=== PATIENT | male | born 1980 | race Asian ===

== ENCOUNTER 2021-01-06 11:34 | Emergency (ER) | payer BC, OTHER ==
[~2021-01-06] VITALS: Ht 165.1 cm; Wt 54.9 kg
[2021-01-06 11:38] VITALS: BP 114/81
--- NOTE | 2021-01-06 11:46 | NUR ---
40 YO MALE BIBS D/T LACERATION TO LEFT 3RD AND 4TH DIGIT. PAIN 10/10, THROBBING. BLEEDING IS CURRENTLY BEING CONTROLLED WITH GAUZE. PT STATES HE WAS GARDENING AND THE GARDEN JEROME LACERATED HIS 3RD AND 4TH DIGIT WHEN IT JERKED BACK AT HIM. SENSATION AND ROM INTACT. PMH: DENIES NKDA
[2021-01-06] MEDS ORDERED: LIDOCAINE 2% 1000 MG/50 ML VIAL INJ ONE (12:10)
[2021-01-06] MEDS ORDERED: KETOROLAC 30 MG/ML VIAL IM ONE (12:10)
[2021-01-06] MEDS ORDERED: LIDOCAINE MPF 1% 5 ML ONE (12:31)
[2021-01-06] MEDS ORDERED: LIDOCAINE 2% 100 MG/5 ML SYR IVP ONE (12:31)
[2021-01-06] MEDS ORDERED: CEPH-588 PO (12:52)
[2021-01-06] MEDS ORDERED: IBUP-2213 PO (12:52)
[2021-01-06] MEDS ORDERED: BACITRACIN OINT 500 UNITS/GM PKT TP ONE ×2 (12:59→13:00)
--- NOTE | 2021-01-06 13:13 | NUR ---
Patient discharged with v/s stable. Written and verbal after care instructions given and explained. Patient alert, oriented and verbalized understanding of instructions. Ambulatory with steady gait. All questions addressed prior to discharge. ID band removed. Patient advised to follow up with PMD. Rx of CEPHALEXIN, IBUPROFEN given. Patient educated on indication of medication including possible reaction and side effects. Opportunity to ask questions provided and answered.
--- NOTE | 2021-01-06 13:15 | NUR ---
PT'S WOUND WAS CLEANED. AFTER [facility] SUTURED WOUNDS, SURGICEL, BACITRACIN, NONADHERENT DRESSING AND GAUZE ROLL WAS USED TO BANDAGE WOUND. [facility] NOTIFIED.
== END 2021-01-06 13:13 | disposition home or self-care (01) ==
LOC: MED 11:34
DX: S61.211A Laceration without foreign body of left index finger without damage to nail, initial encounter (principal); S61.213A Laceration without foreign body of left middle finger without damage to nail, initial encounter; Z79.899 Other long term (current) drug therapy; W29.8XXA Contact with other powered hand tools and household machinery, initial encounter; Y93.89 Activity, other specified; Y92.096 Garden or yard of other non-institutional residence as the place of occurrence of the external cause; Y99.8 Other external cause status
CPT/HCPCS: 12002; 90471; 90715; 96372; 99284; J1885; J2001

== ENCOUNTER 2021-01-08 10:12 | Emergency (ER) | payer BC ==
[~2021-01-08] VITALS: Ht 165.1 cm; Wt 58.5 kg
[~2021-01-08 10:12] MED LIST: CEPH-588 PO; IBUP-2213 PO
[2021-01-08 10:22] VITALS: BP 113/59
--- NOTE | 2021-01-08 10:25 | NUR ---
PT TO LOBBY.
--- NOTE | 2021-01-08 12:01 | NUR ---
BRIAN GOTTLIEB WITH PT IN TRIAGE FOR FURTHER EVALUATION.
[2021-01-08] MEDS ORDERED: BACITRACIN OINT 500 UNITS/GM PKT TP ONE (12:10)
--- NOTE | 2021-01-08 12:25 | NUR ---
Patient discharged with v/s stable. Written and verbal after care instructions given and explained. Patient verbalized understanding. Ambulatory with steady gait. All questions addressed prior to discharge. Advised to follow up with PMD.
== END 2021-01-08 12:25 | disposition home or self-care (01) ==
LOC: MED 10:12
DX: S61.210D Laceration without foreign body of right index finger without damage to nail, subsequent encounter (principal); S61.212D Laceration without foreign body of right middle finger without damage to nail, subsequent encounter; Z79.899 Other long term (current) drug therapy; X58.XXXD Exposure to other specified factors, subsequent encounter
CPT/HCPCS: 99283

== ENCOUNTER 2021-01-13 07:42 | Emergency (ER) | payer BC ==
[~2021-01-13] VITALS: Ht 165.1 cm; Wt 54.4 kg
[2021-01-13 07:45] VITALS: BP 105/69
[2021-01-13] MEDS ORDERED: BACITRACIN OINT 500 UNITS/GM PKT TP ONE (08:01)
[2021-01-13 08:27] VITALS: BP 105/69
== END 2021-01-13 08:27 | disposition home or self-care (01) ==
LOC: MED 07:42
DX: Z48.01 Encounter for change or removal of surgical wound dressing (principal); Z79.2 Long term (current) use of antibiotics; Z79.1 Long term (current) use of non-steroidal anti-inflammatories (NSAID)
CPT/HCPCS: 99282